=== PATIENT | male | born 1965 | race Two or more races ===

== ENCOUNTER → 2018-04-21 | Outpatient (CLI) | payer BC ==
[~2018-04-21] VITALS: Ht 170.2 cm; Wt 72.6 kg
[~2018-04-21] MED LIST: FISH OIL 1,0001 EAC8 PO; LO-DOSE ASPIRIN81 M2 PO; PROTONIX40 MG PO; QBRELIS1 MG/1 ML PO; RED YEAST RICE600 MG PO; TURMERIC500 M2 PO
== END | disposition home or self-care (01) ==
LOC: AMB 12:51
PROC: 0DJ08ZZ Inspection of Upper Intestinal Tract, Via Natural or Artificial Opening Endoscopic (ICD-10-PCS; principal; 2018-04-21)
DX: C16.0 Malignant neoplasm of cardia (principal); I10 Essential (primary) hypertension; F17.200 Nicotine dependence, unspecified, uncomplicated; Z79.82 Long term (current) use of aspirin; R13.10 Dysphagia, unspecified
CPT/HCPCS: 93005; J2250; J3010